=== PATIENT | male | born 1955 | race Caucasian/White ===

== ENCOUNTER 2024-07-23 14:41 | Emergency (ER) | payer MEDICARE, SELFPAY ==
--- NOTE | ~2024-07-23 | XR_ITS ---
EXAMINATION: XR chest 2V Exam Date/Time: 07/23/2024 15:33 BLACKJACK DEALER HISTORY: chest pain Comparison: None. RESULT: Lines, tubes, and devices: Coronary artery stents. Lungs and pleura: Clear. Cardiomediastinal silhouette: Unremarkable. Other: No acute osseous or upper abdominal finding. IMPRESSION: No acute cardiopulmonary process. Reviewed, dictated and finalized at location K. KJACK DEALER
--- NOTE | 2024-07-23 14:43 | ECG_ITS ---
Test Date: 2024-07-23 14:50:02 Measurements Intervals [place] Rate: 72 P: 36 [place]: 189 QRS: -27 QRSD: 88 T: 85 QT: 342 QTc: 375 Interpretive Statements SINUS RHYTHM ANTEROSEPTAL INFARCT, AGE INDETERMINATE BORDERLINE ST-T WAVE ABNORMALITY- HIGH LATERAL LEADS BASELINE ARTIFACT- II, III, AVF ABNORMAL ECG No previous ECG available for comparison Electronically Signed On 07-23-2024 16:28:46 FLIGHT MANAGER by Karl King D.O.
[2024-07-23 14:57] VITALS: BP 153/72; PULSE 69; RESP 18; TEMP 36.7; O2SAT 95
[2024-07-23 15:20] LABS: Basophils Absolute Auto 0.1 K/mm3 (0.0-0.1); Basophils Percent Auto 0.7 % (0.2-1.2); Eosinophils Absolute Auto 0.2 K/mm3 (0-0.3); Hematocrit 49.9 % (42.0-52.0); Hemoglobin 16.7 g/dL (14.0-18.0); Immature Granulocyte Absolute 0.04 K/mm3 (0.00-0.031); Immature Granulocyte Percent A 0.5 % (0-0.5); Immature Platelet Fraction Pct 2.6 % (0.9-11.2); Lymphocytes Absolute Auto 2.44 K/mm3 (0.9-3.2); Lymphocytes Percent Auto 28.5 % (18.3-44.2); Mean Corpuscular HGB Conc 33.5 g/dl (32-36); Mean Corpuscular Hemoglobin 31.5 pg (26-34); Mean Corpuscular Volume 94.2 fl (80-100); Mean Platelet Volume 9.5 fl (7.4-10.4); Monocytes Absolute Auto 0.7 K/mm3 (0.1-0.6); Monocytes Percent Auto 8.3 % (2.6-8.5); Neutrophils Absolute Auto 5.1 K/mm3 (1.3-6.7); Platelet Count Result 184 k/mm3 (150-375); Red Cell Distribution Width 13.4 % (11.5-14.5); White Blood Count 8.6 K/mm3 (4.5-10.0)
[2024-07-23 15:27] LABS: Alanine Aminotransferase 100 U/L (6-50); Albumin Level 4.8 g/dL (3.5-5.1); Alkaline Phosphatase 88 U/L (38-126); Anion Gap 9 mmol/L (4-12); Aspartate Amino Transferase 84 U/L (17-59); Bilirubin,Total 0.8 mg/dL (0.2-1.3); Blood Urea Nitrogen 24 mg/dL (9-20); Calcium 9.6 mg/dL (8.4-10.2); Carbon Dioxide 23 mmol/L (22-30); Chloride 104 mmol/L (98-107); Estimated CRCL calculation 56 ml/min; Estimated Glomerular Filt Rate 47; Glucose 110 mg/dL (65-110); Lipase 208 U/L (23-300); Potassium 4.7 mmol/L (3.4-5.0); Sodium 136 mmol/L (137-145)
[2024-07-23 15:34] VITALS: PULSE 71
[2024-07-23 15:39] LABS: Troponin I 0.028 ng/mL (0.000-0.034)
--- NOTE | 2024-07-23 16:06 | ED.CHESTPAIN ---
HPI - Chest Pain General Chief Complaint: Chest Pain Stated Complaint: chest pain Time Seen by Provider: 07/23/24 15:43 Source: patient Mode of arrival: ambulatory Limitations: no limitations History of Present Illness HPI narrative: This is a 69-year-old male who presents to the ED for chief complaint of chest discomfort beginning 2 hours prior to arrival. He is s/p day 3 from stent placement for lad at [facility] with Dr. Sotomayor. Patient reports that he was helping his moved today because she had a stroke recently. Shortly after helping her move he started to have some general dizziness and felt like he might pass out. He sat down and noticed some left/central chest discomfort. States that the discomfort has largely subsided but is still present. Patient states he deals with a lot of GERD and takes PPI and famotidine daily. He does report the pain is a burning and also tender to the chest. Denies associated sweats, vomiting, shortness of breath, leg swelling. Reports that he initially went to his doctor about getting a stress test as he had not had this in 16 years and they discovered LAD occlusion Related Data Allergies Allergy/AdvReac Type Severity Reaction Status Date / Time No Known Allergies Allergy Verified 07/23/24 16:33 Review of Systems Review of Systems: All systems as dictated in HPI Exam Narrative: GENERAL: Well-appearing, well-nourished, and in no acute distress. HEAD: Normocephalic, atraumatic. EYES: PERRLA and EOMI. ENT: Nares clear, no rhinorrhea or epistaxis. Mucous membranes moist. Oropharynx without tonsillar hypertrophy exudate or other lesions. NECK: Supple. No adenopathy or masses. CHEST: No respiratory distress. Clear to auscultation. No wheezes rales or rhonchi. Mild left chest wall tenderness. HEART: Regular rate and rhythm. No murmur heard. Normal peripheral pulses. ABDOMEN: Soft, nontender, nondistended, normal active bowel sounds. MSK: Normal range of motion. No edema. SKIN: Warm, dry, no rash. NEURO: Alert and oriented x4. No focal deficits. PSYCH: Normal mood and affect. Course Reevaluation(s) Reevaluation #1: Patient is currently pain-free. He is preferring to go home if able. I told him I would speak with his cardiology team. Date: 07/23/24 Time: 18:54 Consultations Consultation #1: Spoke with Dr. Yanes (cardiology [facility]): He is encouraged that the patient is pain-free and actually suspected is troponins to be a little more elevated. He feels fine with the patient going home and following up outpatient. Vital Signs Vital signs: Vital Signs Temperature 98.1 F 07/23/24 14:57 Pulse Rate 69 07/23/24 14:57 Respiratory Rate 18 07/23/24 14:57 Blood Pressure 153/72 H 07/23/24 14:57 Pulse Oximetry 95 07/23/24 14:57 Temperature 98.1 F 07/23/24 14:57 Pulse Rate 68 07/23/24 19:07 Respiratory Rate 16 07/23/24 19:07 Blood Pressure 108/81 07/23/24 19:07 Pulse Oximetry 97 07/23/24 19:07 MDM - Chest Pain MDM Narrative Medical decision making narrative: This is a 69-year-old male who presents to the ED for chief complaint of left chest discomfort and dizziness that started today after transferring his s/p day 3 from stent placement. Vitals are normal. Exam shows is overall unremarkable. He is well-appearing on exam. EKG shows sinus rhythm with nonspecific T-wave inversions present. Able to compared to EKG that patient is showing me on his phone it looks very similar. This previous EKG was done after his stent was placed 3 days ago. Lab work shows 0 and 3 hour troponins are within normal limits. They are detectable but flat overall. D-dimer is negative and suspicion for VTE is low. Lab work overall unremarkable. Chest x-ray shows no acute findings. Heart score is 4. Discussed this with his cardiology group at [facility] who feel comfortable with discharge home given the above findings. Patient has remained pain-free and ready to be discharged home. Patient will be discharged in stable condition. Supportive measures discussed and return precautions given. Patient is understanding and agreeable with plan for discharge with PCP/cardiology follow-up. Lab Data 07/23/24 15:12 07/23/24 15:12 Labs: Lab Results 07/23/24 07/23/24 07/23/24 Range/Units 15:12 16:18 17:55 WBC 8.6 (4.5-10.0) K/mm3 RBC 5.30 (4.6-6.20) M/mm3 Hgb 16.7 (14.0-18.0) g/dL Hct 49.9 (42.0-52.0) % MCV 94.2 (80-100) fl MCH 31.5 (26-34) pg MCHC 33.5 (32-36) g/dl RDW 13.4 (11.5-14.5) % Plt Count 184 (150-375) k/mm3 MPV 9.5 (7.4-10.4) fl Immature Gran % (Auto) 0.5 (0-0.5) % Neut % (Auto) 60.0 (45.5-73.1) % Lymph % (Auto) 28.5 (18.3-44.2) % [place] % (Auto) 8.3 (2.6-8.5) % Eos % (Auto) 2.0 (0-4.4) % Baso % (Auto) 0.7 (0.2-1.2) % Lymph # (Auto) 2.44 (0.9-3.2) K/mm3 [place] # (Auto) 0.7 H (0.1-0.6) K/mm3 Eos # (Auto) 0.2 (0-0.3) K/mm3 Baso # (Auto) 0.1 (0.0-0.1) K/mm3 Abs Immat Gran (auto) 0.04 H (0.00-0.031) K/mm3 Absolute Neuts (auto) 5.1 (1.3-6.7) K/mm3 Absolute Nucleated RBC 0.000 (0.0-0.012) K/mm3 Nucleated RBC % 0.0 (0.0-0.2) % % Immature Plt Fraction 2.6 (0.9-11.2) % PT 13.3 (11.1-14.7) Seconds INR 1.0 APTT 26.3 (22.3-36.8) Seconds D-Dimer 0.41 (<0.48) ug/mL Sodium 136 L (137-145) mmol/L Potassium 4.7 (3.4-5.0) mmol/L Chloride 104 (98-107) mmol/L Carbon Dioxide 23 (22-30) mmol/L Anion Gap 9 (4-12) mmol/L BUN 24 H (9-20) mg/dL Creatinine 1.50 H (0.7-1.3) mg/dL Estim Creat Clear Calc 56 ml/min Estimated GFR 47 L (59 - ) Glucose 110 (65-110) mg/dL Calcium 9.6 (8.4-10.2) mg/dL Total Bilirubin 0.8 (0.2-1.3) mg/dL AST 84 H (17-59) U/L ALT 100 H (6-50) U/L Alkaline Phosphatase 88 (38-126) U/L Troponin I 0.028 0.030 (0.000-0.034) ng/mL Total Protein 8.0 (6.3-8.2) g/dL Albumin 4.8 (3.5-5.1) g/dL Lipase 208 (23-300) U/L ECG Data EKG #1: ECG completion date: 07/23/24 ECG completion time: 14:50 Prior ECG tracings: available for review Interpretation: Sinus rhythm Rate 72 Nonspecific T-wave inversions. Appears similar in comparison to EKG patient is able to show me on his phone from 3 days ago QTC normal No acute ischemic findings Discharge Plan Discharge Clinical Impression: Chest pain Patient Disposition: Home, Self-Care Condition: Stable Instructions: Antibiotic Form, Chest Pain (ED) Additional Instructions: Your exam and imaging today are reassuring. Please follow-up with your traffic workforce representative as scheduled. Take your medications as prescribed If you have any new or worsening symptoms please return to the ER for further evaluation. Follow-up/Referrals: PHYSICIAN NOT ON STAFF,NONSTAFF [Primary Care Provider] - Time of Disposition: 18:59 Quality HEART score for chest pain patients History: slightly suspicious ECG: non specific repolarization disturbance/LBTB/PM Age: > or = to 65 years Risk factors: 1 or 2 risk factors Troponin: < or = to 1x normal limit Heart score: 4
[2024-07-23 16:35] LABS: Prothrombin Time 13.3 Seconds (11.1-14.7)
[2024-07-23 16:36] LABS: Partial Thromboplastin Time 26.3 Seconds (22.3-36.8)
[2024-07-23] MEDS: ASPIRIN 81 MG CHEWABLE TABLET 243 MG PO (16:46)
[2024-07-23 16:48] VITALS: BP 163/91; PULSE 74; RESP 24; O2SAT 96
--- NOTE | 2024-07-23 17:51 | ECG_ITS ---
Test Date: 2024-07-23 18:12:28 Measurements Intervals [place] Rate: 63 P: 28 [place]: 195 QRS: -28 QRSD: 98 T: 105 QT: 385 QTc: 395 Interpretive Statements SINUS RHYTHM ANTEROSEPTAL INFARCT, AGE INDETERMINATE BORDERLINE ST-T WAVE ABNORMALITY- HIGH LATERAL LEADS BASELINE ARTIFACT- I, II, AVR, AVL, AVF, V1 ABNORMAL ECG Compared to ECG 07/23/2024 14:50:02 NO SIGNIFICANT CHANGE Electronically Signed On 07-23-2024 20:55:40 LEATHER PRODUCTION WORKER by Karl Kign D.O.
[2024-07-23 18:03] LABS: D Dimer 0.41 ug/mL (<0.48)
[2024-07-23 18:48] VITALS: BP 140/76; PULSE 64; RESP 18; O2SAT 99
[2024-07-23 19:07] VITALS: BP 108/81; PULSE 68; RESP 16; O2SAT 97
== END 2024-07-23 19:11 | disposition home or self-care (01) ==
PROVIDERS: Emergency Medicine; Emergency Provider Physician Assistant
DX: R07.89 Other chest pain (principal); Z95.5 Presence of coronary angioplasty implant and graft; K21.9 Gastro-esophageal reflux disease without esophagitis; R94.31 Abnormal electrocardiogram [ECG] [EKG]
CPT/HCPCS: 36415; 71046; 80053; 83690; 84484; 85025; 85055; 85380; 85610; 85730; 93005; 99284; A9270